=== PATIENT | male | born 2000 | race African-American/Black ===

== ENCOUNTER 2022-06-13 22:02 | Emergency (ER) | payer SELFPAY ==
[2022-06-13] MEDS ORDERED: Diazepam 5 MG TAB ONE (22:37)
[2022-06-13 23:51] LABS: Amphetamine Not Detected (NotDetected); Barbiturates Screen Not Detected (NotDetected); Benzodiazepine Screen Not Detected (NotDetected); Cocaine Metabolite Screen Not Detected (NotDetected); Methadone Not Detected (NotDetected); Methamphetamine Not Detected (NotDetected); Opiate Screen Not Detected (NotDetected); Oxycodone Screen Not Detected (NotDetected); Phencyclidine (PCP) Not Detected (NotDetected); THC/Cannabinoid Screen Detected (NotDetected); Tricyclic Screen Not Detected (NotDetected)
== END 2022-06-14 00:02 | disposition home or self-care (01) ==
LOC: ERS 22:02
DX: T40.711A Poisoning by cannabis, accidental (unintentional), initial encounter (principal)
CPT/HCPCS: 80306; 99284

== ENCOUNTER 2022-06-15 03:55 | Emergency (ER) | payer SELFPAY | END 2022-06-15 06:40 | disposition home or self-care (01) | LOC: ERS 03:55 | DX: F12.10 Cannabis abuse, uncomplicated (principal) | CPT/HCPCS: 99284 ==

== ENCOUNTER 2022-06-16 09:27 | Inpatient (IN) | payer SELFPAY ==
[2022-06-16 11:00] LABS: Amphetamine Not Detected (NotDetected); Barbiturates Screen Not Detected (NotDetected); Benzodiazepine Screen Detected (NotDetected); Cocaine Metabolite Screen Not Detected (NotDetected); Methadone Not Detected (NotDetected); Methamphetamine Not Detected (NotDetected); Opiate Screen Not Detected (NotDetected); Oxycodone Screen Not Detected (NotDetected); Phencyclidine (PCP) Not Detected (NotDetected); THC/Cannabinoid Screen Detected (NotDetected); Tricyclic Screen Not Detected (NotDetected)
[2022-06-16 11:01] LABS: Bilirubin Negative (Negative); Blood, Urine Negative (Negative); Clarity Clear (Clear); Glucose, Urine (Dipstick) Normal (Negative); Ketone, Urine 60 mg/dL (Negative); Leukocyte Negative Leu/uL (Negative); Nitrite Negative (Negative); Protein, Urine (Dipstick) 20 mg/dL (Neg-Trace); Specific Gravity, Urine 1.029 (1.002-1.036); Urobilinogen Normal mg/dL (Less than 2); pH, Urine 6.5 (5.0-9.0)
[2022-06-16] MEDS ORDERED: Lorazepam 2 MG/ML VIAL ONE (11:08)
[2022-06-16 11:12] LABS: #Basophils 0.1 thou/uL (0.0-0.2); #Lymphocytes 1.5 thou/uL (1.20-3.40); #Monocytes 0.8 thou/uL (0.11-0.59); #Neutrophils 4.6 thou/uL (1.40-6.50); %Basophils 1.5 % (0.0-1.0); %Eosinophils 0.3 % (0.0-10.0); %Lymphocytes 21.9 % (28.0-48.0); %Monocytes 11.4 % (0.0-4.0); Hemoglobin 15.4 g/dL (14.0-18.0); Mean Corpuscular HGB CONC 32.2 g/dL (32.0-36.0); Mean Corpuscular Hemoglobin 30.1 pg (25.0-35.0); Mean Corpuscular Volume 93.7 fl (78.0-98.0); Mean Platelet Volume 8.7 fL (7.4-10.4); Platelet Count 170 thou/uL (130-400); RBC Distribution Width 12.3 % (11.5-14.5); Red Blood Cell (RBC) Count 5.11 mill/uL (4.00-5.20)
[2022-06-16 11:33] LABS: ALT (SGPT) 49 U/L (8-55); AST (SGOT) 114 U/L (5-34); Acetaminophen Less than 10.0 mcg/mL (10.0-30.0); Albumin 4.5 g/dL (3.5-5.0); Alcohol Less than 10 mg/dL (Less than 10); Alkaline Phosphatase 63 U/L (50-130); Anion Gap 12 mmol/L (10-20); BUN (Urea Nitrogen) 14 mg/dL (8.9-20.6); Bilirubin, Total 1.7 mg/dL (0.2-1.2); Calc. Creatinine Clearance 0 mL/min (70-130); Calcium 9.1 mg/dL (7.8-10.44); Carbon Dioxide 24 mmol/L (22-29); Chloride 104 mmol/L (98-107); Estimated GFR 94; Globulin 3.1 g/dL (2.4-3.5); Glucose 94 mg/dL (70-105); Lipase 26 U/L (8-78); Potassium 3.9 mmol/L (3.5-5.1); Protein, Total 7.6 g/dL (6.0-8.3); Salicylate Less than 8.0 mg/dL (15.0-30.0); Sodium 136 mmol/L (136-145)
[2022-06-16 11:50] LABS: CK (CPK) 6003 U/L (30-200)
[2022-06-16] MEDS ORDERED: Ondansetron PF 4 MG/2 ML Vial IVP PRN (13:07)
[2022-06-16] MEDS ORDERED: Acetaminophen 325 MG TAB PO PRN (13:08)
[2022-06-16 13:33] VITALS: BMI 21.7
[2022-06-16] MEDS: Sodium Chloride 0.9% 1,000 ML IV SCH ×2 (15:08→18:37)
[2022-06-16] MEDS ORDERED: FLU VACC QS2022-23(6MOS UP)/PF 60 MCG/0.5 ML SYRINGE IM ONE (18:00)
[2022-06-16] MEDS: Lorazepam 0.5 MG TAB PO PRN ×2 (18:06→22:40)
[2022-06-16] MEDS ORDERED: OLANZapine 10 MG VIAL IM SCH (23:00)
[2022-06-17 06:38] LABS: ALT (SGPT) 49 U/L (8-55); AST (SGOT) 95 U/L (5-34); Albumin 4.1 g/dL (3.5-5.0); Alkaline Phosphatase 58 U/L (50-130); Anion Gap 14 mmol/L (10-20); BUN (Urea Nitrogen) 7 mg/dL (8.9-20.6); Bilirubin, Total 1.9 mg/dL (0.2-1.2); CK (CPK) 3711 U/L (30-200); Calc. Creatinine Clearance 148 mL/min (70-130); Calcium 9.2 mg/dL (7.8-10.44); Carbon Dioxide 21 mmol/L (22-29); Chloride 106 mmol/L (98-107); Estimated GFR 124; Globulin 3.1 g/dL (2.4-3.5); Glucose 82 mg/dL (70-105); Potassium 3.6 mmol/L (3.5-5.1); Protein, Total 7.2 g/dL (6.0-8.3); Sodium 137 mmol/L (136-145)
[2022-06-17] MEDS: Lorazepam 0.5 MG TAB PO PRN (07:57)
[2022-06-17] MEDS ORDERED: Enoxaparin Sodium 40 MG/0.4 ML SYRINGE SC SCH (09:00)
[2022-06-17 12:29] VITALS: BP 154/80
[2022-06-17] MEDS ORDERED: ALPRAZolam 0.5 MG TAB PO SCH (17:00)
[2022-06-17 19:05] VITALS: TEMP 99.4
== END 2022-06-17 19:00 | disposition home or self-care (01) | DRG 885 ==
LOC: ERS 09:27 → T4-B 12:18
PROVIDERS: ADMIT Internal Medicine; ATTEND Internal Medicine
DX: F23 Brief psychotic disorder (principal); M62.82 Rhabdomyolysis; F12.129 Cannabis abuse with intoxication, unspecified; F41.9 Anxiety disorder, unspecified
CPT/HCPCS: 36415; 70450; 80053; 80306; 80307; 81003; 82550; 83690; 84484; 85025; 93005; J1650; J2060; J7050; U0003; U0005